=== PATIENT | male | born 1935 | race Two or more races ===

== ENCOUNTER 2018-07-09 14:54 | Emergency (ER) | payer OTHER ==
[~2018-07-09] VITALS: Ht 180.3 cm; Wt 84.8 kg
[~2018-07-09 14:54] MED LIST: CILOSTAZOL50 MG; COZAAR100 MG; METFORMIN HCL500 MG; PLAVIX75 MG
== END 2018-07-09 20:40 | disposition home or self-care (01) ==
LOC: ER 14:54
DX: M19.011 Primary osteoarthritis, right shoulder (principal)

== ENCOUNTER 2018-10-30 11:33 | Emergency (ER) | payer OTHER ==
[~2018-10-30] VITALS: Ht 175.3 cm; Wt 88.5 kg
== END 2018-10-30 15:53 | disposition home or self-care (01) ==
LOC: ER 11:33
DX: N43.2 Other hydrocele (principal); B35.8 Other dermatophytoses

== ENCOUNTER 2019-01-26 17:06 | Emergency (ER) | payer OTHER ==
[~2019-01-26] VITALS: Ht 190.5 cm; Wt 83.9 kg
[2019-01-26] MEDS ORDERED: ASPIRIN81 M1 (18:08)
[2019-01-26] MEDS ORDERED: NEURONTIN800 MG (18:08)
[2019-01-26] MEDS ORDERED: GLUCOTROL XL5 MG (18:08)
== END 2019-01-26 22:27 | disposition home or self-care (01) ==
LOC: ER 17:06
DX: R07.89 Other chest pain (principal)

== ENCOUNTER 2019-05-10 14:38 | Emergency (ER) | payer OTHER ==
[~2019-05-10] VITALS: Ht 180.3 cm; Wt 83.9 kg
[~2019-05-10 14:38] MED LIST changes: +ASPIRIN81 M1; +GLUCOTROL XL5 MG; +NEURONTIN800 MG
== END 2019-05-10 20:23 | disposition home or self-care (01) ==
LOC: ER 14:38
DX: M75.51 Bursitis of right shoulder (principal)

== ENCOUNTER 2019-05-21 15:47 | Emergency (ER) | payer OTHER ==
[~2019-05-21] VITALS: Ht 175.3 cm; Wt 86.2 kg
== END 2019-05-21 22:39 | disposition home or self-care (01) ==
LOC: ER 15:47
DX: R10.84 Generalized abdominal pain (principal)

== ENCOUNTER 2020-08-28 08:49 | Inpatient (IN) | payer OTHER ==
[~2020-08-28] VITALS: Ht 182.9 cm; Wt 90.7 kg
[2020-08-28] MEDS ORDERED: PROTONIX40 MG (09:00)
[2020-08-28] MEDS ORDERED: LASIX20 MG (09:00)
[2020-08-28] MEDS ORDERED: GLIPIZIDE ER2.5 MG (09:00)
[2020-08-28] MEDS ORDERED: CILOSTAZOL100 MG (09:01)
[2020-08-28] MEDS ORDERED: COZAAR100 MG (09:01)
[2020-08-28] MEDS ORDERED: RELAFEN DS1000 MG PO (09:01)
[2020-08-28] MEDS ORDERED: FORTAMET500 MG (09:02)
[2020-08-28] MEDS ORDERED: SIMVASTATIN5 MG PO (09:03)
== END 2020-09-08 05:53 | disposition expired | DRG 377 ==
LOC: ER 08:49 → ICU-2 20:14 → ICU 08-31 15:33
PROVIDERS: ADMIT Internal Medicine; ATTEND Internal Medicine
PROC: 4A033R1 Measurement of Arterial Saturation, Peripheral, Percutaneous Approach (ICD-10-PCS; principal; 2020-08-28)
PROC: BW21ZZZ Computerized Tomography (CT Scan) of Abdomen and Pelvis (ICD-10-PCS; 2020-08-28)
PROC: 02HV33Z Insertion of Infusion Device into Superior Vena Cava, Percutaneous Approach (ICD-10-PCS; 2020-08-30)
PROC: B24BZZZ Ultrasonography of Heart with Aorta (ICD-10-PCS; 2020-08-31)
PROC: 5A09457 Assistance with Respiratory Ventilation, 24-96 Consecutive Hours, Continuous Positive Airway Pressure (ICD-10-PCS; 2020-09-03)
PROC: 5A2204Z Restoration of Cardiac Rhythm, Single (ICD-10-PCS; 2020-09-04)
PROC: 0D9670Z Drainage of Stomach with Drainage Device, Via Natural or Artificial Opening (ICD-10-PCS; 2020-09-07)
DX: K29.61 Other gastritis with bleeding (principal); J18.9 Pneumonia, unspecified organism; N39.0 Urinary tract infection, site not specified; E87.0 Hyperosmolality and hypernatremia; K70.9 Alcoholic liver disease, unspecified; E11.9 Type 2 diabetes mellitus without complications; K44.9 Diaphragmatic hernia without obstruction or gangrene; J44.9 Chronic obstructive pulmonary disease, unspecified; R09.02 Hypoxemia; Z20.822 Contact with and (suspected) exposure to COVID-19; E86.0 Dehydration; I48.91 Unspecified atrial fibrillation; E87.6 Hypokalemia; I46.9 Cardiac arrest, cause unspecified; Z79.84 Long term (current) use of oral hypoglycemic drugs; I50.9 Heart failure, unspecified; I11.0 Hypertensive heart disease with heart failure